=== PATIENT | female | born 1975 | race Two or more races ===

== ENCOUNTER 2016-12-19 20:51 | Emergency (ER) | payer MEDICAID, OTHER ==
[~2016-12-19] VITALS: Ht 152.4 cm; Wt 70.0 kg
[2016-12-19 20:55] VITALS: Ht 152.4 cm; Wt 70.0 kg
--- NOTE | 2016-12-19 21:25 | EN ---
Date/Time of Note Date/Time of Note DATE: 12/19/16 TIME: 21:24 ER Progress Note This 41 yearold female sent in emergency department for complaints of lower abdominal pain and rectal pain that started today, patient denies any constipation, patient denies any blood in the stool or black stool. Patient discussed the pain as throbbing pain, 6/10 scale, accompanied with rectal pain. Patient denies any nausea or vomiting. Patient was initially evaluated here in [facility], patient is further evaluation and workup in the ER2, pending bed assignment at this time. BENITEZ KIMBROUGH NP Dec 19, 2016 21:25
[2016-12-19] MEDS ORDERED: morphine 4 MG/ML VIAL IV STA (22:46)
[2016-12-19] MEDS ORDERED: ONDANSETRON 4 MG INJ IV STA (22:46)
[2016-12-19] MEDS ORDERED: SOD CHLORIDE 0.9% 1,000 ML IV STA (22:46)
[2016-12-19 23:09] LABS: ADD SCAN DIFF NO
[2016-12-19 23:20] LABS: ADD UMIC NO; URINE BILIRUBIN (Dip) NEGATIVE (NEGATIVE); URINE BLOOD (Dip) NEGATIVE (NEGATIVE); URINE COLOR LT. YELLOW (YELLOW); URINE KETONES (Dip) NEGATIVE (NEGATIVE); URINE LEUKOCYTE ESTERASE (Dip) NEGATIVE (NEGATIVE); URINE NITRITE (Dip) NEGATIVE (NEGATIVE); URINE TOTAL PROTEIN (Dip) NEGATIVE (NEGATIVE); URINE UROBILINOGEN (Dip) 0.2 E.U./dL (0.1-1.0)
[2016-12-19 23:32] LABS: ALBUMIN 4.5 g/dl (3.3-4.9); ALBUMIN/GLOBULIN RATIO 1.21; BILIRUBIN,INDIRECT 0.1 mg/dl (0-1.1); BILIRUBIN,TOTAL 0.1 mg/dl (0.2-1.3); CALCIUM 9.5 mg/dl (8.4-10.2); CREATININE 0.6 mg/dl (0.44-1.00); POTASSIUM 3.8 mmol/L (3.5-5.1); TOTAL PROTEIN 8.2 g/dl (6.1-8.1)
[2016-12-19 23:39] LABS: BASOPHILS % 0.3 % (0.0-2.0); EOSINOPHILS # 0.2 10^3/ul (0.0-0.5); EOSINOPHILS % 1.6 % (0.0-7.0); HEMATOCRIT 42.7 % (37.0-47.0); HEMOGLOBIN 13.5 g/dl (12.0-16.0); LYMPHOCYTES # 3.6 10^3/ul (0.8-2.9); LYMPHOCYTES % 33.7 % (15.0-51.0); MEAN CORPUSCULAR HEMOGLOBIN 28.5 pg (29.0-33.0); MEAN CORPUSCULAR HGB CONC 31.6 g/dl (32.0-37.0); MEAN CORPUSCULAR VOLUME 90.1 fl (82.0-101.0); MEAN PLATELET VOLUME 9.7 fl (7.4-10.4); MONOCYTE # 0.8 10^3/ul (0.3-0.9); MONOCYTES % 7.7 % (0.0-11.0); NEUTROPHIL # 6.1 10^3/ul (1.6-7.5); NEUTROPHILS % 56.2 % (39.0-77.0); PLATELET COUNT 308 10^3/UL (140-415); RED BLOOD COUNT 4.74 10^6/ul (4.20-5.40); RED CELL DISTRIBUTION WIDTH 12.6 % (11.5-14.5); WHITE BLOOD COUNT 10.8 10^3/ul (4.8-10.8)
[2016-12-20] MEDS ORDERED: IOHEXOL 300MG/ML 150 ML BTL ONE (00:19)
[2016-12-20] MEDS ORDERED: SOD CHLORIDE 0.9% 100 ML ONE (00:19)
--- NOTE | 2016-12-20 01:00 | RADRPT ---
PROCEDURE: CT abdomen and pelvis with intravenous contrast. CLINICAL INDICATION: Pain. TECHNIQUE: CT of the abdomen/pelvis was performed utilizing axial images with reconstructions in s agittal and coronal planes after uneventful administration of 100 cc Omnipaque 300. The administered radiation dose is CTDI 10.2 mGy, DLP 567 mGy-cm. COMPARISON: No pertinent prior examinations were submitted for comparison. FINDINGS: Visualized Chest: The visualized lung bases are clear. Abdomen: The spleen, pancreas, and adrenal glands are unremarkable. The liver is diffusely decreased in at tenuation, compatible with hepatic steatosis. A calcified granuloma is noted within the peripheral r ight hepatic lobe. The kidneys are without hydronephrosis. No definite urinary calculi are seen. There is no evidence of bowel obstruction. The appendix is normal. No intra-abdominal free air is seen. There is no evidence of intra-abdominal adenopathy or free fluid. Pelvis: There is no evidence of pelvic adenopathy. The uterus and ovaries are without enlargement. The uri nary bladder is unremarkable. There is no pelvic free fluid. Osseous structures: Unremarkable. IMPRESSION: No acute findings. Hepatic steatosis. RPTAT: HIKT .Cristhian Toledo MD, MD Date Time Electronically viewed and signed by .Cristhian Toledo MD, on 12/20/2016 00:59 .T/
[2016-12-20] MEDS ORDERED: IBUP-1542 PO (01:10)
[2016-12-20] MEDS ORDERED: HYDR-906 PO (01:10)
--- NOTE | 2016-12-20 01:21 | ERD ---
ER Documentation Chief Complaint Date/Time DATE: 12/20/16 TIME: 01: Chief Complaint constipation x 2 days HPI This is a 41-year-old female presents to the ER with mid abdominal pain and rectal pain. This started 2 days ago. Patient states that her rectal pain is pressure-like in quality is rated as 6 out of 10. It has been constant and it has been getting more severe. Patient denies any nausea vomiting or diarrhea. She denies any constipation. She does not have any history of hemorrhoids. She denies any fevers or chills. She denies any urinary frequency or dysuria. Patient denies any changes in her bowels. ROS 12 point review of systems was done, all negative except per HPI. Medications Home Meds Active Scripts Hydrocodone/Acetaminophen ([place] 5-325 Tablet) 1 Each Tablet, 1 TAB PO Q6H Y for PAIN, #20 TAB Prov:CHASE,CHAI C 12/20/16 Ibuprofen* (Motrin*) 600 Mg Tab, 600 MG PO Q6, #30 TAB Prov:CHASE,CHAI C 12/20/16 Allergies Allergies: Coded Allergies: No Known Allergy (Unverified , 12/19/16) PMhx/Soc Medical and Surgical Hx: pt denies Medical Hx, pt denies Surgical Hx Hx Alcohol Use: No Hx Substance Use: No Hx Tobacco Use: No Smoking Status: Never smoker Physical Exam Vitals Vital Signs Date Time Temp Pulse Resp B/P Pulse Ox O2 Delivery O2 Flow Rate FiO2 12/19/16 20:55 98.3 97 20 142/77 100 Physical Exam GENERAL: The patient is well developed and appropriate for usual state of health , in no apparent distress. HEENT: Atraumatic. CHEST: Clear to auscultation bilaterally. There are no rales, wheezes or rhonchi. HEART: Regular rate and rhythm. No murmurs, clicks, rubs or gallops. ABDOMEN: Soft, nontender and nondistended. Good bowel sounds. No rebound or guarding. No gross peritonitis. No gross organomegaly or masses. No Steinberg sign or McBurney point tenderness. RECTAL: no hemorrhoids seen, no masses felt BACK: No midline or flank tenderness. NEURO: Alert and oriented. Result Diagram: 12/19/168 12/19/162257 Results 24 hrs Laboratory Tests Test 12/19/16 22:58 White Blood Count 10.810^3/ul Red Blood Count 4.7410^6/ul Hemoglobin 13.5g/dl Hematocrit 42.7% Mean Corpuscular Volume 90.1fl Mean Corpuscular Hemoglobin 28.5pg Mean Corpuscular Hemoglobin Concent 31.6g/dl Red Cell Distribution Width 12.6% Platelet Count 23822^3/UL Mean Platelet Volume 9.7fl Neutrophils % 56.2% Lymphocytes % 33.7% Monocytes % 7.7% Eosinophils % 1.6% Basophils % 0.3% Nucleated Red Blood Cells % 0.0/100WBC Neutrophils # 6.110^3/ul Lymphocytes # 3.610^3/ul Monocytes # 0.810^3/ul Eosinophils # 0.210^3/ul Basophils # 0.010^3/ul Nucleated Red Blood Cells # 0.010^3/ul Urine Color LT. YELLOW Urine Clarity CLEAR Urine pH 6.0 Urine Specific [place] 1.020 Urine Ketones NEGATIVE Urine Nitrite NEGATIVE Urine Bilirubin NEGATIVE Urine Urobilinogen 0.2 E.U./dL Urine Leukocyte Esterase NEGATIVE Urine Hemoglobin NEGATIVE Urine Glucose 0.5%% Urine Total Protein NEGATIVE Sodium Level 136mmol/L Potassium Level 3.8mmol/L Chloride Level 103mmol/L Carbon Dioxide Level 25mmol/L Anion Gap 12 Blood Urea Nitrogen 15mg/dl Creatinine 0.60mg/dl Glucose Level 176mg/dl Calcium Level 9.5mg/dl Total Bilirubin 0.1mg/dl Direct Bilirubin 0.00mg/dl Indirect Bilirubin 0.1mg/dl Aspartate Amino Transf (AST/SGOT) 67IU/L Alanine Aminotransferase (ALT/SGPT) 105IU/L Alkaline Phosphatase 86IU/L Total Protein 8.2g/dl Albumin 4.5g/dl Globulin 3.70g/dl Albumin/Globulin Ratio 1.21 Lipase 85U/L Current Medications Medications (Trade) Dose Ordered Sig/Kailee Route PRN Reason Start Time Stop Time Status Last Admin Dose Admin Sodium Chloride (NS) 1,000 ml @ 1,000 mls/hr Q1H STAT IV 12/19/16 22:46 12/19/16 23:45 DC 12/19/16 23:03 Morphine Sulfate (morphine) 4 mg ONCE STAT IV 12/19/16 22:46 12/19/16 22:48 DC 12/19/16 23:09 Ondansetron HCl 4 mg 4 mg ONCE STAT IV 12/19/16 22:46 12/19/16 22:48 DC 12/19/16 23:03 Sodium Chloride (NS) 100 ml @ ud STK-MED ONCE .ROUTE 12/20/16 00:19 12/20/16 00:20 DC 12/20/16 00:23 Iohexol (Omnipaque 300mg/ ml) 150 ml STK-MED ONCE .ROUTE 12/20/16 00:19 12/20/16 00:20 DC 12/20/16 00:23 Procedures/MDM This is a 41-year-old female presents to the ER with abdominal pain and rectal pain. At this time there is no evidence of perirectal abscess, intraabdominal abscess, appendicitis, tubo-ovarian abscess,, obstruction. At this time etiology of patient's abdominal pain and rectal pain is unknown. Patient was strongly urged to follow-up with a harness placer for colonoscopy explained this to the patient extensively. Patient will be sent home with [place] with ibuprofen. She is to follow-up with her primary care doctor within 1-2 days or return to ER sooner if symptoms worsen. My medical decision making was shared with the patient she understands and agrees with plan. Departure Diagnosis: Primary Impression: Rectal pain Additional Impression: Abdominal pain Condition: Stable Patient Instructions: Abdominal Pain Additional Instructions: Llame al doctor MAANA y ivette rishabh MAG PARA DENTRO DE 1-2 LEHMAN.Dgale a la secretaria que nosotros le instruimos hacer esta mag.Avise o llame si augustin condicin se empeora antes de la mag. Regresa aqui si peor o no mejor. NECESITAS IR A UN GASTROENRELOGO LO MAS PRONTO POSIBLE. PIDELE A TU DOCTOR DE [facility] PARA RISHABH AUTORIZACION CHAI STONE Dec 20, 2016 01:21
[2016-12-20 01:29] VITALS: BP 108/61; PULSE 77; RESP 16
== END 2016-12-20 01:30 | disposition home or self-care (01) ==
LOC: FTE 20:51
DX: K62.89 Other specified diseases of anus and rectum (principal); R10.9 Unspecified abdominal pain
CPT/HCPCS: 74177; 80053; 81003; 83690; 85025; J2270; J2405; J7030; Q9967; Z7610

== ENCOUNTER 2018-01-18 20:57 | Emergency (ER) | END 2018-01-19 00:48 | disposition home or self-care (01) ==